=== PATIENT | male | born 1975 | race Two or more races ===

== ENCOUNTER 2019-11-08 11:43 | Outpatient (CLI) | payer OTHER ==
[2019-11-09] MEDS ORDERED: ASPIR 8181 MG PO (09:45)
[2019-11-09] MEDS ORDERED: CANDE PO (09:46)
[2019-11-09] MEDS ORDERED: CRESTOR40 MG PO (09:46)
== END 2019-11-08 11:50 | disposition home or self-care (01) ==
LOC: LAB 11:43
PROVIDERS: ATTEND Orthopaedic Surgery Hand Surgery
DX: E78.3 Hyperchylomicronemia (principal); E11.9 Type 2 diabetes mellitus without complications; N39.0 Urinary tract infection, site not specified; D65 Disseminated intravascular coagulation [defibrination syndrome]; D66 Hereditary factor VIII deficiency; E78.00 Pure hypercholesterolemia, unspecified; Z01.811 Encounter for preprocedural respiratory examination; I10 Essential (primary) hypertension

== ENCOUNTER 2019-11-14 05:18 | Day surgery (SDC) | payer OTHER ==
[~2019-11-14 05:18] MED LIST: ASPIR 8181 MG PO; CANDE PO; CRESTOR40 MG PO
== END 2019-11-14 12:25 | disposition home or self-care (01) ==
LOC: CIR.AMB 05:18 → ADM 08:30 → CIR.AMB 12:25
PROVIDERS: ATTEND Orthopaedic Surgery Hand Surgery
DX: G56.01 Carpal tunnel syndrome, right upper limb (principal); Z20.828 Contact with and (suspected) exposure to other viral communicable diseases